=== PATIENT | male | born 1970 | race Caucasian/White ===

== ENCOUNTER 2021-10-19 01:12 | Day surgery (SDC) | payer OTHER, SELFPAY ==
[2021-10-08 08:37] VITALS: BMI 30.5
--- NOTE | 2021-10-18 13:39 | P.PNAN_ITS ---
Anes - Initial Pre Proc Eval Procedure: Operation Date: 10/19/21 13:15 Proposed Procedures p Esophagogastroduodenoscopy & Screening Colonoscopy - Wilmer Savage MD Date/Time: 10/18/21 13:39 Surgeon: Wilmer Montero MD Pre Op Diagnosis: gerd;neoplasm screening Patient Data Age: 51 Gender: M Height: 1.77 m Weight: 95.3 kg Allergies Allergy/AdvReac Type Severity Reaction Status Date / Time No Known Allergies Allergy Verified 10/08/21 08:43 Home Medications Medication Instructions Recorded Confirmed Type erythromycin-benzoyl peroxide 3 1 applic topical BID 08/17/21 10/08/21 History %-5 % topical gel ketoconazole 2 % topical cream 1 applic topical BID 08/17/21 10/08/21 History omeprazole 40 mg capsule,delayed 40 mg PO DAILY 08/17/21 10/08/21 History release Patient hx anesthesia problems: none Family hx anesthesia problems: none Results Review: All pre-operative results and documents have been reviewed as part of the pre-operative evaluation. [facility] Past Medical History Medical History (Updated 08/17/21 @ 09:01 by Milly Albarran, GALDINO) Irritable bowel syndrome with alternating bowel habits Social History Social History Smoking status: Never smoker Alcohol intake: current Drinks per week: 6 Substance use: never Substance use type: does not use Living arrangements: alone Spiritual care concerns: No Anes - Eval Final PreProcedure Day of Procedure 10/18/21 13:39 Patient weight: obese Heart: regular rate and rhythm Lungs: clear to auscultation Airway: Mallampati scale class II Neurological: alert and oriented Last oral intake: >/= 8 hours ASA classification: II Emergent: no Anesthetic plan: proceed Anesthesia type and monitoring: general GIVS and standard monitoring Results Review: All pre-operative results and documents have been reviewed as part of the pre- operative evaluation. Informed Consent: The patient's anesthetic plan and its attendant risks and benefits were discussed with the patient/family/POA. Questions were solicited and answers provided to the satisfaction of the patient/family/POA.
[2021-10-19 11:58] VITALS: BP 128/73; PULSE 72; RESP 20; TEMP 36.3; O2SAT 100
[2021-10-19] MEDS: LACTATED RINGERS 1,000 ML 150 ML IV CONT (12:06)
--- NOTE | 2021-10-19 12:31 | PM.HPGS ---
History of Present Illness History of Present Illness Consent: Risks, benefits, and alternatives have been discussed and questions answered. Patient agrees to proceed with procedure. Chief complaint: gerd;neoplasm screening Narrative: Lui Persaud is a 51 year old male with gerd, better after started using ppi- noted difference if skip a dose, never had egd or colonoscopy. Review of Systems Constitutional: Constitutional: Denies headache(s) and Denies weakness Eyes: Eyes: Denies blurry vision ENT: Reports Normal hearing present, Denies headache(s) and Denies neck pain Cardiovascular: Cardiovascular: Denies chest pain and Denies dyspnea Respiratory: Respiratory: Denies dyspnea Gastrointestinal: Gastrointestinal: Reports no additional gastrointestinal complaints Genitourinary: Genitourinary: Denies dysuria Musculoskeletal: Musculoskeletal: Denies neck pain Integumentary/Breasts: Skin/Breast: Denies dry skin Neurologic: Reports Normal hearing present, Denies headache(s) and Denies weakness Psychiatric: Psychiatric: Denies anxiety Endocrine: Endocrine: Denies change in body appearance Hematologic/Lymphatic: Hematologic/Lymphatic: Denies easy bleeding Allergic/Immunologic: Allergic/Immunologic: Denies urticaria PMFSH Past Medical History Medical History (Updated 10/19/21 @ 12:32 by Wilmer Montero MD) Colon cancer screening GERD (gastroesophageal reflux disease) Irritable bowel syndrome with alternating bowel habits Social History Social History Smoking status: Never smoker Alcohol intake: current Drinks per week: 6 Substance use: never Substance use type: does not use Living arrangements: alone Spiritual care concerns: No Meds Home Medications and Allergies Home Medications Medication Instructions Recorded Confirmed Type erythromycin-benzoyl peroxide 3 1 applic topical BID 08/17/21 10/08/21 History %-5 % topical gel ketoconazole 2 % topical cream 1 applic topical BID 08/17/21 10/08/21 History omeprazole 40 mg capsule,delayed 40 mg PO DAILY 08/17/21 10/08/21 History release Allergies Allergy/AdvReac Type Severity Reaction Status Date / Time No Known Allergies Allergy Verified 10/08/21 08:43 Vital Signs Vital Signs - 24 hr 10/19/21 11:58 Temperature 97.4 F L Pulse Rate 72 Respiratory Rate 20 Blood Pressure 128/73 Pulse Oximetry 100 Oxygen Delivery Room Air Exam Const: General: comfortable and no acute distress HENMT: General nose exam: Normal nares present Eyes: General: appearance normal, both eyes and all related structures Neck: Neck: no JVD Resp: Auscultation: clear to auscultation bilaterally Cardio: Rate: regular rate Rhythm: regular rhythm GI: Inspection: non-distended GI Palp: Yes Soft to palpation Skin: General skin exam: normal color Neuro: General: gait normal Speech: normal speech Extrem: General: normal to inspection Psych: Mental Status: mental status grossly normal Assessment and Plan Assessment and plan (1) GERD (gastroesophageal reflux disease): Code(s): K21.9 - Gastro-esophageal reflux disease without esophagitis Status: Acute Assessment and Plan: egd with bx better with ppi (2) Colon cancer screening: Code(s): Z12.11 - Encounter for screening for malignant neoplasm of colon Status: Acute Assessment and Plan: colonoscopy
--- NOTE | 2021-10-19 12:55 | SUR.OPER ---
EGD ENDED 124, COLONOSCOPY STARTED 125
[2021-10-19 13:05] VITALS: BP 120/71; PULSE 76; RESP 15; O2SAT 99
[2021-10-19 13:15] VITALS: BP 118/80; PULSE 70; RESP 19; O2SAT 100
[2021-10-19 13:25] VITALS: BP 130/93; PULSE 69; RESP 16; O2SAT 99
== END 2021-10-19 13:32 | disposition home or self-care (01) ==
PROVIDERS: PCP Student in an Organized Health Care Education/Training Program; Visit Provider Internal Medicine Gastroenterology
PROC: 0DJ08ZZ Inspection of Upper Intestinal Tract, Via Natural or Artificial Opening Endoscopic (ICD-10-PCS; CPT 43235; principal; 2021-10-19 13:15)
DX: Z12.11 Encounter for screening for malignant neoplasm of colon (principal); K57.30 Diverticulosis of large intestine without perforation or abscess without bleeding; K64.8 Other hemorrhoids; K21.00 Gastro-esophageal reflux disease with esophagitis, without bleeding; K58.9 Irritable bowel syndrome, unspecified; E66.9 Obesity, unspecified; Z68.30 Body mass index [BMI] 30.0-30.9, adult
CPT/HCPCS: 45378; 43239; 88305; J2704; J7120